=== PATIENT | female | born 1960 | race Caucasian/White ===

== ENCOUNTER 2020-01-15 17:06 | Emergency (ER) | payer MEDICAID, SELFPAY ==
[~2020-01-15] VITALS: Ht 152.4 cm; Wt 67.1 kg
[2020-01-15 17:16] VITALS: Ht 152.4 cm; Wt 67.1 kg
[2020-01-15 17:58] LABS: BASOPHIL % 0.4 % (0-2); PLATELET COUNT 249 x10^3mcL (130-400); RED CELL DISTRIBUTION WIDTH 12.9 % (11.5-14.5)
[2020-01-15 18:09] LABS: CALCIUM 9.2 mg/dL (8.5-10.1); CARBON DIOXIDE 27.3 mmol/L (21-32); CHLORIDE SERUM 105 mmol/L (98-107); CREATININE SERUM 0.6 mg/dL (0.6-1.0); GFR1 > 60 mL/min; GLUCOSE SERUM 111 mg/dL (74-106); POTASSIUM SERUM 3.6 mmol/L (3.5-5.1); SODIUM SERUM 142 mmol/L (136-145)
[2020-01-15 18:13] LABS: ALBUMIN 3.7 g/dL (3.4-5.0); ALKALINE PHOSPHATASE 101 U/L (46-116); ALT/SGPT 46 U/L (14-59); AST/SGOT 35 U/L (15-37); BILIRUBIN TOTAL 0.4 mg/dL (0.20-1.00); LACTIC DEHYDROGENASE (LDH) 186 U/L (100-190); TOTAL PROTEIN, SERUM 7.3 g/dL (6.4-8.2)
[2020-01-15 18:14] LABS: microscopic required? NO
[2020-01-15 18:21] LABS: UA SPECIFIC GRAVITY >=1.030 (1.005-1.035); urine erythrocyte NEGATIVE (NEGATIVE)
[2020-01-15 18:22] LABS: C REACTIVE PROTEIN < 0.2 mg/dL (<=0.9)
[2020-01-15 20:00] VITALS: BP 88/57
== END 2020-01-15 19:50 | disposition home or self-care (01) ==
LOC: ED 17:06
PROVIDERS: Emergency Medicine
DX: J98.01 Acute bronchospasm (principal); Z20.828 Contact with and (suspected) exposure to other viral communicable diseases
CPT/HCPCS: 36415; 36600; 83880; 87804; Q0092

== ENCOUNTER 2020-01-27 19:56 | Emergency (ER) | payer MEDICAID, SELFPAY ==
[~2020-01-27] VITALS: Ht 152.4 cm; Wt 67.1 kg
[2020-01-27 19:58] VITALS: Ht 152.4 cm; Wt 67.1 kg
[2020-01-27 21:13] LABS: BASOPHIL % 0.7 % (0-2); PLATELET COUNT 274 x10^3mcL (130-400); RED CELL DISTRIBUTION WIDTH 12.9 % (11.5-14.5)
[2020-01-27 21:49] LABS: CALCIUM 8.6 mg/dL (8.5-10.1); CARBON DIOXIDE 25.5 mmol/L (21-32); CHLORIDE SERUM 107 mmol/L (98-107); CREATININE SERUM 0.8 mg/dL (0.6-1.0); GFR1 > 60 mL/min; GLUCOSE SERUM 90 mg/dL (74-106); POTASSIUM SERUM 3.7 mmol/L (3.5-5.1); SODIUM SERUM 142 mmol/L (136-145)
[2020-01-27 21:53] LABS: ALBUMIN 3.6 g/dL (3.4-5.0); ALKALINE PHOSPHATASE 95 U/L (46-116); ALT/SGPT 32 U/L (14-59); AST/SGOT 19 U/L (15-37); BILIRUBIN TOTAL 0.2 mg/dL (0.20-1.00); CHOLESTEROL 171 mg/dL (<200); TOTAL PROTEIN, SERUM 6.9 g/dL (6.4-8.2); TRIGLYCERIDES 98 mg/dL (<150)
[2020-01-27 21:54] LABS: CHOLESTEROL/HDL RATIO 2.2; HDL CHOLESTEROL 79 mg/dL (40-60)
[2020-01-27 23:10] VITALS: BP 133/81
== END 2020-01-27 23:10 | disposition home or self-care (01) ==
LOC: ED 19:56
PROVIDERS: Specialist
DX: J98.01 Acute bronchospasm (principal); I10 Essential (primary) hypertension
CPT/HCPCS: 36600; 83880; J0171; J2930; J7030; J7613; J7644; Q0092